=== PATIENT | female | born 1990 | race American Indian/Alaskan Native ===

== ENCOUNTER 2018-01-15 14:41 | Emergency (ER) | payer MEDICAID ==
--- NOTE | 2018-01-15 14:45 | ED PDOC ---
"Arrival/HPI - General Time Seen by Provider: 01/15/18 14:44 Historian: Patient - History of Present Illness Narrative History of Present Illness (Text): 01/15/18 14:45 27 y/o female, no significant pmh, nkda, c/o wound evaluation after the lipoma removal on 01/06/2018. Pt. stated that she had lipoma removal from the cervical and lumbar epidermal region about 9 days ago. Pt. stated that the wound dehescence on the 01/07/2018 which she went back to the [facility] ER on and 01/10/18 which evaluated the patient and by the surgical team, suggest secondary healing and taking motrin for pain. pt. is here today and saying that the motrin is limited help and wants better pain control, wants an seconds opinion, no fever or chills, eating and drinking well, no nausea or vomiting, no night sweat, no rash, no other medical or psychological complaints. Past Medical History - Provider Review Nursing Documentation Reviewed: Yes Family/Social History - Physician Review Nursing Documentation Reviewed: Yes Family/Social History: Unknown Family HX Allergies/Home Meds Allergies/Adverse Reactions: Allergies No Known Allergies Allergy (Verified 01/15/18 14:45) Review of Systems - Review of Systems Constitutional: absent: Fatigue, Fevers Eyes: absent: Vision Changes ENT: absent: Hearing Changes Respiratory: absent: SOB, Cough Cardiovascular: absent: Chest Pain Gastrointestinal: absent: Abdominal Pain, Nausea, Vomiting Musculoskeletal: absent: Arthralgias, Back Pain Skin: Laceration. absent: Rash, Pruritis, Skin Lesions, Abscess, Ulcer, Cellulitis Neurological: absent: Headache, Dizziness Psychiatric: absent: Anxiety, Depression, Suicidal Ideation Physical Exam Vital Signs Reviewed: Yes Vital Signs Temp Pulse Resp BP Pulse Ox 01/15/18 20:23 97.9 F 97 H 16 124/87 01/15/18 17:40 98.3 F 01/15/18 17:09 98.9 F 103 H 16 114/61 99 01/15/18 14:50 98.9 F 130 H 17 104/76 98 Temperature: Afebrile Blood Pressure: Normal Pulse: Regular Respiratory Rate: Tachypneic Appearance: Positive for: Well-Appearing, Non-Toxic, Comfortable Pain Distress: Moderate Mental Status: Positive for: Alert and Oriented X 3 - Systems Exam Head: Present: Atraumatic, Normocephalic Pupils: Present: PERRL Extroacular Muscles: Present: EOMI Conjunctiva: Present: Normal Mouth: Present: Moist Mucous Membranes Neck: Present: Normal Range of Motion Respiratory/Chest: Present: Clear to Auscultation, Good Air Exchange. No: Respiratory Distress, Accessory Muscle Use Cardiovascular: Present: Regular Rate and Rhythm, Normal S1, S2. No: Murmurs Abdomen: Present: Normal Bowel Sounds. No: Tenderness, Distention, Peritoneal Signs Back: Present: Normal Inspection Upper Extremity: Present: Normal Inspection. No: Cyanosis, Edema Lower Extremity: Present: Normal Inspection. No: Edema Neurological: Present: GCS=15, Speech Normal, Motor Func Grossly Intact, Gait Normal, Memory Normal Skin: Present: Warm, Dry, Rashes (Cervical region visible approx. 7cm with approx. 1.5cm moderate to deep wound dehesecence noted with remaining 5.5cm is healing secondary with superficially, lower lumbar region visisecondary healing approx. 7.5cm surgical wound very superficially, no streaking or ulcers, no fluctuance. ), Normal Color Psychiatric: Present: Alert, Oriented x 3, Normal Insight, Normal Concentration Medical Decision Making ED Course and Treatment: 01/15/18 15:35 -Labs -Cervical spine with contrast r/o abscess/free gas/fistulas (I discussed with Dr. Bloom and the public works technician, will cover the upper thoracic spine as well w /o Thoracic spine order with contrast. -IVF/toradol/percocet 01/15/18 16:51 -Ibuprofen given, toradol discontinued -Urine hcg is negative. 01/15/18 18:05 -Labs are non-significant except wbc 12.9 (afebrile which can be pain or stress induced), resting HR at 102 BPM after 1L of fluid, no chills and afebrile, will obtain ekg. -EKG: Sinus Tachycardia @ 105 BPM, no ST elevation or depression, T wave inversion noted on the lead III, S1Q3T3 noted on the EKG with no previous comparison. -Wells criteria is 6.0. -Given the fact that the patient has recent history of surgery with inflammatory and weight size, dimer will be elevated, discussed with Dr. Park and agreed with CTA to r/o PE as the patient is afebrile but unexplained tachycardia. 01/15/18 20:32 -CT cervical: Open surgical wound in the low neck/upper back communicating with a 7.8 x 1.7 cm air collection in the deep fat; no acute osseous abnormality identified, no discrete abscess. -CTA chest show: No aneurysm, dissection or central pulmonary embolus; splenomegaly; open surgical wound in the low neck/upper back with focal air collection in the deep subcutaneous fat. -All CT results reviewed with Dr. Park, suggest to discharge home with pain control, tachycardia resolved, no cardiopulmnary complaints, pt. request to be discharged home. -Wound clean with normal saline/betadine, sterile strip without completely closing the wound to avoid further skin tension. -I discussed with the patient in detail that she will need to follow up with the surgeon that this procedure at [facility], she verbally expressed understanding and she will. -I checked the [facility] report, there is no narcotic prescriptions given for the past 12 months. -Discharge home with percocet, naproxen, follow up with your own general surgeon and pmd within 2 days, return to the ER for any new or worsening signs or symptoms. - Lab Interpretations Lab Results: 01/15/18 16:37 01/15/18 16:37 Lab Results 01/15/18 17:05: Urine Color Yellow, Urine Appearance Cloudy, Urine pH 6.0, Ur Specific [place] 1.025, Urine Protein Trace H, Urine Glucose (UA) Negative, Urine Ketones Negative, Urine Blood Negative, Urine Nitrate Negative, Urine Bilirubin Negative, Urine Urobilinogen 0.2, Ur Leukocyte Esterase Small H, Urine RBC 0 - 2, Urine WBC 5 - 10, Ur Epithelial Cells 6 - 8, Urine Bacteria Few 01/15/18 16:37: Sodium 135, Potassium 3.9, Chloride 100, Carbon Dioxide 27, Anion Gap 13, BUN 7, Creatinine 0.9, Est GFR ( Amer) > 60, Est GFR (Non- Af Amer) > 60, Random Glucose 101, Calcium 9.0, Total Bilirubin 0.7, AST 27, ALT 33, Alkaline Phosphatase 70, Total Protein 7.5, Albumin 3.7, Globulin 3.8, Albumin/Globulin Ratio 1.0 L 01/15/18 16:37: WBC 12.9 H, RBC 4.21, Hgb 12.7, Hct 38.3, MCV 91.0, MCH 30.2, MCHC 33.2, RDW 13.5, Plt Count 255, MPV 10.3, Gran % 68.7 H, Lymph % (Auto) 19.2 L, [place] % (Auto) 11.7 H, Eos % (Auto) 0.2 L, Baso % (Auto) 0.2, Gran # 8.84 H, Lymph # (Auto) 2.5, [place] # (Auto) 1.5 H, Eos # (Auto) 0.0, Baso # (Auto ) 0.02 - RAD Interpretation Radiology Orders: 01/15/18 15:25 CERVICAL SPINE W/CONTRAST [CT] Stat 01/15/18 18:05 ANGIO CHEST PE PROTOCOL [CT] Stat CT Cervical with contrast: FINDINGS: Artifacts: Streak artifact degrades image quality. Streak artifact limits evaluation of the brain. Limitations: Patient positioning limits evaluation. Vertebrae: There is straightening of the cervical lordosis. There is no prevertebral soft tissue swelling. There are no fractures. Evaluation of the C1/C2 is limited by extreme rotation. Disc spaces are maintained. Facet joints align anatomically. Discs/spinal canal/neural foramina: see above Soft tissues: There is an open wound in the soft tissues of the upper back/low neck at the C7/T1 levels. There is edema and emphysema in the subcutaneous fat. There is minimal edema in posterior paraspinous muscles. There is an air collection just superficial to the muscles which measures approximately 7.8 x 1.7 cm Air collection appears to communicate with the skin defect. YAN PEDRO | Final Radiology Report CONFIDENTIALITY STATEMENT This report is intended only for use by the referring physician, and only in accordance with law. If you received this in error, call [phone]. Page 2 of 2 Ears and mastoids: Middle ears and mastoids are unremarkable. Thyroid: Thyroid is unremarkable Lung apices: There are atelectatic changes at the lung apices. IMPRESSION: Open surgical wound in the low neck/upper back communicating with a 7.8 x 1.7 cm air collection in the deep fat; no acute osseous abnormality identified, no discrete abscess Thank you for allowing us to participate in the care of your patient. Dictated and Authenticated by: Mari Coleman MD 01/15/2018 8:14 PM Eastern Time ( & [place]) CTA Chest: Heart aorta and Pulmonary arteries: Heart size is accentuated by low volumes and pectus deformity. There is no pericardial effusion. There is no aneurysm or dissection. There are no central pulmonary emboli. Bolus timing and motion limits evaluation of peripheral pulmonary arteries Lungs and pleural spaces: Trachea and main bronchi are patent.There is no pneumothorax. There is dependent atelectasis. There are no effusions Mediastinum: Esophagus is unremarkable. There is no mediastinal adenopathy. Thyroid: Thyroid is unremarkable Bones/joints: There is a pectus excavatum deformity.There are no acute osseous abnormalities. Soft tissues: There is an open surgical wound in the upper back/lower neck. Defect in the skin communicates with an air collection in the deep fat posterior to the muscle planes. Collection measures approximately 0.8 x 6 cm. There is edema in the skin of the upper back. There are no fluid collections. Upper abdomen: The spleen is enlarged. IMPRESSION: No aneurysm, dissection or central pulmonary embolus; splenomegaly; open surgical wound in the low neck/upper back with focal air collection in the deep subcutaneous fat Thank you for allowing us to participate in the care of your patient. Dictated and Authenticated by: Mari Coleman MD 01/15/2018 8:21 PM Eastern Time ([place] & [place]) Veterinary Attendant: Radiologist - EKG Interpretation EKG Interpretation (Text): 01/15/18 18:07 -EKG: Sinus Tachycardia @ 105 BPM, no ST elevation or depression, T wave inversion noted on the lead III, S1Q3T3 noted on the EKG with no previous comparison. Interpreted by ED Physician: Yes Type: 12 lead EKG Comparison: No previous EKG avail. - Medication Orders Current Medication Orders: Discontinued Medications Sodium Chloride (Sodium Chloride 0.9%) 1,000 mls @ 999 mls/hr IV .Q1H1M STA Stop: 01/15/18 16:36 Last Admin: 01/15/18 16:40 Dose: 999 mls/hr eMAR Start Stop Document 01/15/18 16:40 MS (Rec: 01/15/18 16:43 [email or web address]) Intravenous Solution Start Date 01/15/18 Start Time 16:42 End Date 01/15/18 End time 17:42 Total Infusion Time 60 Ibuprofen (Motrin Tab) 600 mg PO STAT STA Stop: 01/15/18 15:20 Last Admin: 01/15/18 15:36 Dose: 600 mg MAR Pain/Vitals Document 01/15/18 15:36 MS (Rec: 01/15/18 15:38 [facility] Pain Reassessment Is This A Pain ReAssessment? No Sleep Is patient sleeping during reassessment? No Presence of Pain Presence of Pain Yes Pain Scale Used Pain Scale Used Numeric Location Upper or Lower Lower Pain Location Body Site Back Description Intermittent Intensity 10 Scale Used Numeric Pain Behavior Moaning Guarding Facial Grimacing Aggravating Factors Changing Position Ketorolac Tromethamine (Toradol) 30 mg IVP STAT STA Stop: 01/15/18 15:37 Last Admin: 01/15/18 16:40 Dose: Oxycodone/Acetaminophen (Percocet 5/325 Mg Tab) 1 tab PO STAT STA Stop: 01/15/18 15:20 Last Admin: 01/15/18 15:38 Dose: 1 tab MAR Pain Assessment Document 01/15/18 15:38 MS (Rec: 01/15/18 15:38 [facility] Pain Reassessment Is this a pain reassessment? No Sleep Is patient sleeping during reassessment? No Presence of Pain Presence of Pain Yes Pain Scale Used Pain Scale Used Numeric Location Upper or Lower Lower Pain Location Body Site Back Description Description Constant Intensity of Pain at present 10 Pain Behavior Moaning Guarding Grasping Site Facial Grimacing Aggravating Factors Changing Position Oxycodone/Acetaminophen (Percocet 5/325 Mg Tab) 1 tab PO STAT STA Stop: 01/15/18 20:23 - PA / IT ASSOCIATE / Resident Statement LAYNE has reviewed & agrees with the documentation as recorded. / has examined the patient and agrees with the treatment plan. Disposition/Present on Arrival - Present on Arrival Any Indicators Present on Arrival: No History of DVT/PE: No History of Uncontrolled Diabetes: No Urinary Catheter: No History of Decub. Ulcer: No - Disposition Have Diagnosis and Disposition been Completed?: Yes Diagnosis: Wound dehiscence Disposition: HOME/ ROUTINE Disposition Time: 15:36 Patient Plan: Discharge Patient Problems: Current Active Problems Problem Status Onset Wound dehiscence Acute Condition: GOOD Additional Instructions: -Discharge home with percocet, naproxen, follow up with your own general surgeon and pmd within 2 days, return to the ER for any new or worsening signs or symptoms. Prescriptions: Naproxen 500 mg PO BID #24 tablet oxyCODONE/Acetaminophen [Percocet 5/325 mg Tab] 1 tab PO QID PRN #10 tab PRN Reason: Other Referrals: Julita Horan [Primary Care Provider] - Follow up with primary Oneal Alvarado MD [Staff Provider] - Follow up with primary Forms: WORK NOTE"
[2018-01-15] MEDS ORDERED: Oxycodone/Acetaminophen 5/325 mg Tab PO STA ×2 (15:19→20:22)
[2018-01-15] MEDS ORDERED: Sodium Chloride 0.9% 1,000 ML IV STA (15:36)
[2018-01-15 16:51] LABS: BASO # 0.02 K/mm3 (0.0-2.0); BASO % 0.2 % (0.0-3.0); EOS % 0.2 % (1.5-5.0); GRAN # 8.84 (1.4-6.5); GRAN % 68.7 % (50.0-68.0); HEMOGLOBIN 12.7 g/dL (12.0-16.0); LYMPH # 2.5 (1.2-3.4); LYMPH % 19.2 % (22.0-35.0); MEAN CORPUSCULAR HEMOGLOBIN 30.2 pg (25.0-35.0); MEAN CORPUSCULAR HGB CONC 33.2 g/dl (31.0-37.0); MEAN PLATELET VOLUME 10.3 fl (7.0-11.0); MONO # 1.5 (0.1-0.6); MONO % 11.7 % (1.0-6.0); RBC 4.21 10^6/uL (3.5-6.1); RED CELL DISTRIBUTION WIDTH 13.5 % (11.5-14.5); WHITE BLOOD COUNT 12.9 10^3/ul (4.5-11.0)
[2018-01-15 17:14] VITALS: RESP 16; O2SAT 99
[2018-01-15 17:16] LABS: ALBUMIN 3.7 g/dL (3.0-4.8); GFR AFRICAN-AMERICAN > 60; GFR NON-AFRICAN AMERICAN > 60
[2018-01-15 17:30] LABS: URINE APPEARANCE CLOUDY (CLEAR); URINE BILIRUBIN NEGATIVE (NEGATIVE); URINE BLOOD NEGATIVE (NEGATIVE); URINE COLOR YELLOW (YELLOW); URINE GLUCOSE (UA) NEGATIVE (NEGATIVE); URINE LEUKOCYTE ESTERASE SMALL Leu/uL (NEGATIVE); URINE PROTEIN TRACE mg/dL (<30 mg/dL); URINE UROBILINOGEN 0.2 E.U./dL (<1 E.U./dL)
[2018-01-15 17:31] LABS: ALT/SGPT 33 U/L (7-56); AST/SGOT 27 U/L (14-36); BLOOD UREA NITROGEN 7 mg/dL (7-21)
[2018-01-15 17:39] LABS: URINE BACTERIA FEW (NEG); URINE RBC 0 - 2 /hpf (0-2)
--- NOTE | 2018-01-15 20:15 | CT ---
EXAM: CT Cervical Spine With Intravenous Contrast EXAM DATE/TIME: 01/15/2018 3:25 PM CLINICAL HISTORY: 27 years old, female; Pain; Neck pain; Prior surgery; Surgery date: <1 month; Patient HX: Pt had surgery 2x weeks to remove lipoma. Abcess. Pt has open wound to neck. Pt unable to lie supine. Scanned prone; Additional info: Lipoma surgical wound dehecence, R/O fistula/absce TECHNIQUE: Axial computed tomography images of the cervical spine with intravenous contrast. All CT scans at this facility use one or more dose reduction techniques, viz.: automated exposure control; ma/kV adjustment per patient size (including targeted exams where dose is matched to indication; i.e. head); or iterative reconstruction technique. Coronal and sagittal reformatted images were created and reviewed. CONTRAST: 100 mL of omni administered intravenously. COMPARISON: There are no prior studies for comparison. FINDINGS: Artifacts: Streak artifact degrades image quality. Streak artifact limits evaluation of the brain. Limitations: Patient positioning limits evaluation. Vertebrae: There is straightening of the cervical lordosis. There is no prevertebral soft tissue swelling. There are no fractures. Evaluation of the C1/C2 is limited by extreme rotation. Disc spaces are maintained. Facet joints align anatomically. Discs/spinal canal/neural foramina: see above Soft tissues: There is an open wound in the soft tissues of the upper back/low neck at the C7/T1 levels. There is edema and emphysema in the subcutaneous fat. There is minimal edema in posterior paraspinous muscles. There is an air collection just superficial to the muscles which measures approximately 7.8 x 1.7 cm Air collection appears to communicate with the skin defect. Ears and mastoids: Middle ears and mastoids are unremarkable. Thyroid: Thyroid is unremarkable Lung apices: There are atelectatic changes at the lung apices. IMPRESSION: Open surgical wound in the low neck/upper back communicating with a 7.8 x 1.7 cm air collection in the deep fat; no acute osseous abnormality identified, no discrete abscess
--- NOTE | 2018-01-15 20:21 | CT ---
EXAM: CT Angiography Chest With Intravenous Contrast EXAM DATE/TIME: 01/15/2018 6:05 PM CLINICAL HISTORY: 27 years old, female; Pain; Chest pain; On breathing; Patient HX: Pt had surgery 2x weeks to remove lipoma. Abcess. Pt has open wound to neck. Pt unable to lie supine. Scanned prone; Additional info: R/O pe TECHNIQUE: Axial computed tomographic angiography images of the chest with intravenous contrast using pulmonary embolism protocol. All CT scans at this facility use one or more dose reduction techniques, viz.: automated exposure control; ma/kV adjustment per patient size (including targeted exams where dose is matched to indication; i.e. head); or iterative reconstruction technique. MIP reconstructed images were created and reviewed. Coronal and sagittal reformatted images were created and reviewed. CONTRAST: 100 mL of omni administered intravenously. COMPARISON: There are no prior studies for comparison. FINDINGS: Heart aorta and Pulmonary arteries: Heart size is accentuated by low volumes and pectus deformity. There is no pericardial effusion. There is no aneurysm or dissection. There are no central pulmonary emboli. Bolus timing and motion limits evaluation of peripheral pulmonary arteries Lungs and pleural spaces: Trachea and main bronchi are patent.There is no pneumothorax. There is dependent atelectasis. There are no effusions Mediastinum: Esophagus is unremarkable. There is no mediastinal adenopathy. Thyroid: Thyroid is unremarkable Bones/joints: There is a pectus excavatum deformity.There are no acute osseous abnormalities. Soft tissues: There is an open surgical wound in the upper back/lower neck. Defect in the skin communicates with an air collection in the deep fat posterior to the muscle planes. Collection measures approximately 0.8 x 6 cm. There is edema in the skin of the upper back. There are no fluid collections. Upper abdomen: The spleen is enlarged. IMPRESSION: No aneurysm, dissection or central pulmonary embolus; splenomegaly; open surgical wound in the low neck/upper back with focal air collection in the deep subcutaneous fat
[2018-01-15 20:24] VITALS: BP 124/87; PULSE 97; TEMP 97.9
--- NOTE | 2018-01-15 22:00 | CARD ---
APPROVED REPORT EKG Measurement Heart [id number] <Conclusion> Sinus tachycardia Otherwise normal ECG
== END 2018-01-15 20:54 | disposition home or self-care (01) ==
LOC: ED 14:41
DX: T81.30XD Disruption of wound, unspecified, subsequent encounter (principal); Y83.8 Other surgical procedures as the cause of abnormal reaction of the patient, or of later complication, without mention of misadventure at the time of the procedure
CPT/HCPCS: 71275; 72126; 80053; 81001; 85025; 87086; 93005; 96360; 99283; J7040